=== PATIENT | male | born 1995 | race African-American/Black ===

== ENCOUNTER 2017-05-14 10:53 | Emergency (ER) | payer SELFPAY ==
--- NOTE | 2017-05-14 12:16 | PHYS DOC ---
General Chief Complaint: BACK PAIN - NO INJURY Stated Complaint: BACK PAIN Time Seen by MD: 11:14 Source: patient Exam Limitations: no limitations Problems: History of Present Illness Initial Comments Patient is a 22-year-old male who comes the ED complaining of back pain. Patient states that he injured his back (herniated lumbar disk) doing squats in high school and had to go to physical therapy for a period of years. 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 He says he's been managing the symptoms for years however the last few days they have intensified. Currently he complains of left sided lumbosacral pain with radiation down his posterior left leg at times all the way to the heel. His symptoms are intensified with forward bending of the neck or hip flexion. He denies leg weakness saddle anesthesia or incontinence. He has no primary care physician [id number] medications haven't helped. Timing/Duration: getting worse, changing over time Severity: severe Modifying Factors: worse with movement, improves with rest Associated Symptoms: other Allergies: Coded Allergies: Penicillins (Verified Allergy, Unknown, 05/14/17) Past Medical History Medical History: no pertinent history Surgical History: no surgical history Social History Smoker: cigarettes Alcohol: occasionally Drugs: none Review of Systems Constitutional: denies chills, denies diaphoresis, denies fever Respiratory: denies cough, denies shortness of breath Cardiovascular: denies chest pain, denies palpitations Gastrointestinal: denies abdominal pain, denies diarrhea, denies vomiting Musculoskeletal: see HPI Psychiatric/Neurological: see HPI Physical Exam General Appearance: no apparent distress, moderate distress Ear, Nose, Throat: hearing grossly normal, normal ENT inspection Neck: non-tender, supple Respiratory: normal breath sounds, no respiratory distress Cardiovascular: normal peripheral pulses, regular rate, rhythm Gastrointestinal: non tender, soft Back: no CVA tenderness, no vertebral tenderness, decreased range of motion, muscle spasm Extremities: non-tender, normal inspection, no calf tenderness, pelvis stable Neurologic/Psychiatric: heel nail rasper II-XII nml as tested, no motor/sensory deficits, alert, normal mood/affect, oriented x 3, other (DTRs/strength/sensory equal and intact bilateral lower extremities, negative straight leg raise bilaterally.) Skin: normal color, warm/dry Orders, Labs, Meds I discussed treatment options at length with the patient, he would like to avoid narcotics. The patient was advised to discontinue tobacco abuse he expressed agreement and understanding of the treatment plan. Departure Time of Disposition: 12:13 Disposition: 01 HOME, SELF-CARE Diagnosis: lumbar radiculopathy, tobaccoism Patient Instructions: Lumbosacral Radiculopathy, Smoking, You Can Quit, Easy-to -Read Additional Instructions: Off work today note given. Stop smoking seek medical assistance if necessary. Keep activity to "pain free." Aggressive hydration with Gatorade or water. [id number] Tylenol as needed. Prescription: Prednisone, gabapentin You may consider massage therapy or chiropractic treatment. You will need to follow up with a primary care physician. ED staff can give you a list of local doctors accepting new patients as well as those who have walk- in appointments available. Follow-up with a doctor next week for recheck and further evaluation including possible MRI or pain management referral. Return to the ED with new or changing symptoms. GLENDY PETERSON DO May 14, 2017 12:16
[2017-05-14] MEDS ORDERED: predniSONE 20 MG TABLET PO ONE (12:30)
[2017-05-14] MEDS ORDERED: GABAPENTIN 100 MG CAPSULE. PO ONE (12:30)
[2017-05-14 12:40] VITALS: BP 129/79
== END 2017-05-14 12:40 | disposition home or self-care (01) ==
LOC: ER 10:53
DX: M54.16 Radiculopathy, lumbar region (principal); F17.210 Nicotine dependence, cigarettes, uncomplicated; Z88.0 Allergy status to penicillin
CPT/HCPCS: 99283; J7512

== ENCOUNTER 2017-10-19 11:34 | Emergency (ER) | payer OTHER ==
[~2017-10-19] VITALS: Ht 193 cm; Wt 117.9 kg
--- NOTE | 2017-10-19 11:57 | RAD ---
Right thumb injury, 10/19/2017: History: Laceration A partially radiopaque bandage is in place. No fracture or dislocation is identified. No radiopaque foreign body is identified in the soft tissues. IMPRESSION: No acute bony abnormality is detected.
--- NOTE | 2017-10-19 13:20 | PHYS DOC ---
Past History Past Medical History: No Pertinent History Past Surgical History: No Surgical History Alcohol Use: Occasionally Drug Use: Marijuana Adult General Chief Complaint Chief Complaint: LACERATION/AVULSION HPI HPI Patient is a 22-year-old male who was trying to put together bed when he was using a knife is a screwdriver and pulled it back and cut his right dorsal thumb. Patient's tetanus is up-to-date. He cannot make a thumbs up. No numbness or tingling. Review of Systems Review of Systems Constitutional: Denies fever or chills [] Musculoskeletal: Positive right hand joint pain [] Integument: Positive laceration Neurologic: Denies focal weakness or sensory changes [] All other systems were reviewed and found to be within normal limits, except as documented in this note. Allergies Allergies Allergies Coded Allergies Type Severity Reaction Last Updated Verified Penicillins Allergy Unknown 05/14/17 Yes Physical Exam Physical Exam Constitutional: Well developed, well nourished, no acute distress, non-toxic appearance. [] Extremities: Right dorsal thumb with a [place] shaped laceration that goes over his interphalangeal joint. Wound examined and bloodless field and I could not actually see a tendon rather I saw his joint and explored for tendon but could not find one. Sensation was intact before digital block. Patient can partially extend his right thumb however he cannot extend it fully. Neurologic: Alert and oriented X 3, normal motor function, normal sensory function, no focal deficits noted. [] Current Patient Data Vital Signs Vital Signs Date Time Temp Pulse Resp B/P (MAP) Pulse Ox O2 Delivery O2 Flow Rate FiO2 10/19/17 11:54 98.1 71 22 99 Room Air EKG EKG [] Radiology/Procedures Radiology/Procedures Right thumb injury, 10/19/2017: History: Laceration A partially radiopaque bandage is in place. No fracture or dislocation is identified. No radiopaque foreign body is identified in the soft tissues. IMPRESSION: No acute bony abnormality is detected. DICTATED AND SIGNED BY: CHRISTIAN GARCÍA MD DATE: 10/19/17 1154 Impressions: Indication: [R THUMB LACERATION] Procedure: The patient was placed in the appropriate position and anesthesia was injected into his right thumb base for a digital block, approximately 5 mL of a one-to-one mixture of 2% lidocaine with 0.5% bupivacaine was used. The area was then cleansed with Betadine and irrigated copiously. The laceration was closed using 5-0 nylon, 6 sutures used. Total repaired wound length: 3 cm The patient tolerated the procedure well Complications: None Course & Med Decision Making Course & Med Decision Making Patient with extensor tendon laceration on exam. I spoke to [facility] and Dr. Jaimes accepted the patient. Patient will drive private vehicle to check in at [facility] and be directed to a room for further care. Patient transferred in stable condition. Dragon Disclaimer Dragon Disclaimer This electronic medical record was generated, in whole or in part, using a voice recognition dictation system. Departure Departure: Impression: Primary Impression: Laceration of thumb Additional Impression: Laceration of thumb, right, with tendon involvement Disposition: XFER OTHER ([facility]) Condition: STABLE Referrals: PCP,NO (PCP) Problem Qualifiers Primary Impression: Laceration of thumb Encounter type: initial encounter Damage to nail status: without damage Foreign body presence: without foreign body Laterality: right Qualified Codes: S61.011A - Laceration without foreign body of right thumb without damage to nail, initial encounter NELIA BRYANT DO Oct 19, 2017 13:20
[2017-10-19 14:09] VITALS: BP 122/72
== END 2017-10-19 14:24 | disposition short-term general hospital (02) ==
LOC: ER 11:34
DX: S61.011A Laceration without foreign body of right thumb without damage to nail, initial encounter (principal); F12.10 Cannabis abuse, uncomplicated; Z88.0 Allergy status to penicillin; W26.0XXA Contact with knife, initial encounter; Y93.89 Activity, other specified; Y99.8 Other external cause status; Y92.89 Other specified places as the place of occurrence of the external cause
CPT/HCPCS: 12002; 73130; 99284-25; 99285-25

== ENCOUNTER 2017-10-19 16:31 | Emergency (ER) | payer OTHER ==
[~2017-10-19] VITALS: Ht 193 cm; Wt 117.9 kg
[2017-10-19 16:40] VITALS: BP 141/82
--- NOTE | 2017-10-19 17:20 | PHYS DOC ---
Past History Past Medical History: No Pertinent History Past Surgical History: No Surgical History Alcohol Use: Occasionally Drug Use: Marijuana Adult General Chief Complaint Chief Complaint: HAND PROBLEM HPI HPI Patient is a 22-year-old male checking into the emergency department as he could not get his car to function as his steering wheel would lock. Patient was getting transfer to for an extensor tendon laceration. Review of Systems Review of Systems Integument: Positive laceration All other systems were reviewed and found to be within normal limits, except as documented in this note. Allergies Allergies Allergies Coded Allergies Type Severity Reaction Last Updated Verified Penicillins Allergy Unknown 05/14/17 Yes Physical Exam Physical Exam Extremities: Bandage not taken down EKG EKG [] Radiology/Procedures Radiology/Procedures [] Course & Med Decision Making Course & Med Decision Making Patient with transportation issues but he needs to be seen by a hand surgeon and wants to see him tonight. EMS is transferring him to . Dragon Disclaimer Dragon Disclaimer This electronic medical record was generated, in whole or in part, using a voice recognition dictation system. Departure Departure: Impression: Primary Impression: Laceration of thumb, right, with tendon involvement Disposition: XF OTHER ([facility]) Condition: STABLE Referrals: PCP,NO (PCP) Problem Qualifiers Primary Impression: Laceration of thumb, right, with tendon involvement Encounter type: subsequent encounter Qualified Codes: S61.011D - Laceration without foreign body of right thumb without damage to nail, subsequent encounter ; S66.921D - Laceration of unspecified muscle, fascia and tendon at wrist and hand level, right hand, subsequent encounter NELIA BRYANT DO Oct 19, 2017 17:20
== END 2017-10-19 17:20 | disposition short-term general hospital (02) ==
LOC: ER 16:31
DX: S66.221D Laceration of extensor muscle, fascia and tendon of right thumb at wrist and hand level, subsequent encounter (principal); F12.10 Cannabis abuse, uncomplicated; Z88.0 Allergy status to penicillin; X58.XXXD Exposure to other specified factors, subsequent encounter
CPT/HCPCS: 99285

== ENCOUNTER 2018-03-01 18:13 | Emergency (ER) | payer SELFPAY ==
[~2018-03-01] VITALS: Ht 193 cm; Wt 101.0 kg
[2018-03-01 18:13] VITALS: BP 125/68
[2018-03-01] MEDS ORDERED: CYCL-331 PO (18:59)
[2018-03-01] MEDS ORDERED: NAPR-683 PO (18:59)
[2018-03-01] MEDS ORDERED: CYCLOBENZAPRINE 10 MG TABLET. PO ONE (19:00)
[2018-03-01] MEDS ORDERED: NAPROXEN 500 MG TABLET PO ONE (19:00)
--- NOTE | 2018-03-01 19:00 | PHYS DOC ---
Past History Past Medical History: No Pertinent History Past Surgical History: No Surgical History Alcohol Use: Occasionally Drug Use: Marijuana Adult General Chief Complaint Chief Complaint: BACK PAIN OR INJURY HPI HPI Patient is a 22 year old male who presents with complaint of low back pain. Patient states he awoke with symptoms this morning. Patient states he has history of a bulging disc in his lower lumbar spine was diagnosed within the last 2 years by MRI. Patient states that he had been managing well with the pain using medications as needed. 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 The patient states that he does feel pain radiating down into the left foot. The patient states he is able to ambulate and denies any saddle anesthesia, loss of bowel or bladder control, or foot drop. Patient has not taken any medications for her symptoms today. On my evaluation the patient rates his pain currently as 9 out of 10. Review of Systems Review of Systems Constitutional: Denies fever or chills [] Eyes: Denies change in visual acuity, redness, or eye pain [] HENT: Denies nasal congestion or sore throat [] Respiratory: Denies cough or shortness of breath [] Cardiovascular: Denies chest pain or edema[] GI: Denies abdominal pain, nausea, vomiting, bloody stools or diarrhea [] : Denies dysuria or hematuria [] Musculoskeletal: Back pain[] Integument: Denies rash or skin lesions [] Neurologic: Denies headache, focal weakness or sensory changes [] All other systems were reviewed and found to be within normal limits, except as documented in this note. Allergies Allergies Allergies Coded Allergies Type Severity Reaction Last Updated Verified Penicillins Allergy Unknown 05/14/17 Yes Physical Exam Physical Exam Constitutional: Alert, afebrile, appears in mild discomfort. [] HENT: Normocephalic, atraumatic, bilateral external ears normal, oropharynx moist, no oral exudates, nose normal. [] Eyes: PERRLA, EOMI, conjunctiva normal, no discharge. [] Neck: Normal range of motion, no tenderness, supple, no stridor. [] Cardiovascular:Heart rate regular rhythm, no murmur [] Lungs & Thorax: Bilateral breath sounds clear to auscultation [] Abdomen: Bowel sounds normal, soft, no tenderness, no masses, no pulsatile masses. [] Skin: Warm, dry, no erythema, no rash. [] Back: No midline tenderness, bilateral lower lumbar paraspinous muscle tenderness to palpation, positive straight leg test in left lower extremity. [] Extremities: No tenderness, no cyanosis, no clubbing, ROM intact, no edema. [] Neurologic: Alert and oriented X 3, normal motor function, normal sensory function, no focal deficits noted. [] Current Patient Data Vital Signs Vital Signs Date Time Temp Pulse Resp B/P (MAP) Pulse Ox O2 Delivery O2 Flow Rate FiO2 03/01/18 18:13 98.1 63 18 97 Room Air Lab Results Not performed EKG EKG Not performed[] Radiology/Procedures Radiology/Procedures Not performed[] Course & Med Decision Making Course & Med Decision Making Pertinent Labs and Imaging studies reviewed. (See chart for details) Patient's symptoms are consistent with acute exacerbation of chronic low back pain. Patient treated with Naprosyn and Flexeril in the emergency department. Patient prescribed Flexeril and Naprosyn for continued outpatient treatment. Referred to primary physician for follow-up in one week and advised return emergency department for any worsening symptoms. Patient voiced understanding and in agreement with treatment plan. Dragon Disclaimer Dragon Disclaimer This electronic medical record was generated, in whole or in part, using a voice recognition dictation system. Departure Departure: Impression: Primary Impression: Acute exacerbation of chronic low back pain Disposition: 01 HOME, SELF-CARE Condition: IMPROVED Referrals: PCP,ARIAN (PCP) Patient Instructions: Back Pain, Adult Additional Instructions: Follow-up with a primary doctor in the next 1-2 weeks for reevaluation. Return to the emergency department for any worsening symptoms. Scripts Cyclobenzaprine Hcl (CYCLOBENZAPRINE HCL) 10 Mg Tablet 1 TAB PO TID PRN for MUSCLE PAIN, #30 TAB Prov: DORIAN SOLIS MD 03/01/18 Naproxen (NAPROSYN) 500 Mg Tablet 1 TAB PO BID, #20 TAB 0 Refills Prov: DORIAN SOLIS MD 03/01/18 DORIAN SOLIS MD March 01, 2018 19:00
== END 2018-03-01 19:17 | disposition home or self-care (01) ==
LOC: ER 18:13
DX: G89.29 Other chronic pain (principal); M54.5 Low back pain; F12.10 Cannabis abuse, uncomplicated; Z88.0 Allergy status to penicillin
CPT/HCPCS: 99283